=== PATIENT | female | born 1985 | race Caucasian/White ===

== ENCOUNTER 2017-07-05 21:20 | Emergency (ER) | payer OTHER ==
[2017-07-05 22:21] VITALS: BP 149/86; PULSE 77; RESP 16; TEMP 97.9; O2SAT 98
[2017-07-05] MEDS ORDERED: Emtricitabine-Tenofovir 200 mg-300 mg Tab PO NR (22:45)
--- NOTE | 2017-07-05 23:07 | C.PDOC ---
History Of Present Illness 31 y/o female who was seen here after a needle stick yesterday comes in after being unable to get PEP meds filled at the pharmacy. Patient to get her first dose here. Denies any complaints at this time. Time Seen by Provider: 07/05/17 22:24 Chief Complaint (Nursing): Medical Clearance History Per: Patient History/Exam Limitations: no limitations Additional History Per: Patient Past Medical History Reviewed: Historical Data, Nursing Documentation, Vital Signs Vital Signs: Last Vital Signs Temp 97.9 F 07/05/17 22:16 Pulse 77 07/05/17 22:16 Resp 16 07/05/17 22:16 BP 149/86 07/05/17 22:16 Pulse Ox 98 07/06/17 04:55 - Medical History PMH: Anxiety, HTN, Hypercholesterolemia Family History: States: Unknown Family Hx - Social History Hx Tobacco Use: No Hx Alcohol Use: No Hx Substance Use: No - Immunization History Hx Tetanus Toxoid Vaccination: Yes Hx Influenza Vaccination: No Hx Pneumococcal Vaccination: No Review Of Systems Constitutional: Negative for: Fever, Chills Cardiovascular: Negative for: Chest Pain Respiratory: Negative for: Cough Genitourinary: Negative for: Frequency, Incontinence Physical Exam - Physical Exam Appears: Non-toxic, No Acute Distress Skin: Warm, Dry ED Course And Treatment O2 Sat by Pulse Oximetry: 98 (RA) Pulse Ox Interpretation: Normal Medical Decision Making Medical Decision Making: pt seen for needlestick last night in ed, occurred at place of [place] [employer] [employer] [employer] [place] pt unable to fill rx for PEP today, will give first dose here Disposition Counseled Patient/Family Regarding: Need For Followup - Disposition Referrals: Yonas Villafuerte MD [Medical Doctor] - Disposition: HOME/ ROUTINE Disposition Time: 23:05 Condition: STABLE Additional Instructions: Please follow up with your doctor and your place of employment tomorrow for authorization of medication and further discussion of your injury. Forms: [facility] (Sami), General Discharge Instructions - Clinical Impression Clinical Impression: Medical assessment, Needle stick injury - Scribe Statement The provider has reviewed the documentation as recorded by the Scribe Molly arevalo
== END 2017-07-05 23:22 | disposition home or self-care (01) ==
LOC: C.ER 21:20
DX: T14.90XD Injury, unspecified, subsequent encounter (principal); X58.XXXD Exposure to other specified factors, subsequent encounter

== ENCOUNTER 2017-09-10 22:46 | Emergency (ER) | payer OTHER ==
[2017-09-10 23:06] VITALS: TEMP 97.9
--- NOTE | 2017-09-11 00:37 | C.PDOC ---
History Of Present Illness 32 years old female presents to ED stating she "lost 2 tampons in her vagina." Patient denies any physical complaints. Time Seen by Provider: 09/10/17 23:08 Chief Complaint (Nursing): Foreign Body History Per: Patient History/Exam Limitations: no limitations Onset/Duration Of Symptoms: Hrs Current Symptoms Are (Timing): Still Present Recent travel outside of the [place]: No Past Medical History Reviewed: Historical Data, Nursing Documentation, Vital Signs Vital Signs: Last Vital Signs Temp 97.9 F 09/10/17 23:03 Pulse 78 09/11/17 00:49 Resp 16 09/11/17 00:49 BP 122/68 09/11/17 00:49 Pulse Ox 99 09/11/17 05:05 - Medical History PMH: Anxiety, HTN, Hypercholesterolemia Surgical History: No Surg Hx Family History: States: No Known Family Hx - Social History Hx Tobacco Use: No Hx Alcohol Use: Yes Hx Substance Use: No - Immunization History Hx Tetanus Toxoid Vaccination: Yes Hx Influenza Vaccination: Yes (05/2017) Hx Pneumococcal Vaccination: No Review Of Systems Genitourinary: Positive for: Other ("Lost 2 tampons in vagina") Psych: Negative for: Depression, Suicidal ideation Physical Exam - Physical Exam Appears: Non-toxic, Other (Awake and Alert) Skin: Warm, Dry Eye(s): bilateral: Normal Inspection Oral Mucosa: Moist Pelvic: Normal Speculum Exam, Other (Could not visualize cervix, no FB seen. ) Neurological/Psych: Oriented x3, Normal Speech, Normal Cognition ED Course And Treatment O2 Sat by Pulse Oximetry: 99 (Room Air) Pulse Ox Interpretation: Normal Medical Decision Making Medical Decision Making: Could not visualize cervix and foreign body could not be ruled out. Called L&D for larger speculum, but it was not available. Patient advised to see LENS GAUGER. Disposition - Disposition Disposition: HOME/ ROUTINE Disposition Time: 00:36 Condition: STABLE Additional Instructions: Follow up with your SAFETY PHYSICIAN within 1-2 days. Return to ED if feel worse. Instructions: Vaginal Foreign Body (ED) Forms: [facility] (Arabic) - Clinical Impression Clinical Impression: Vaginal foreign body - PA / ETHNIC ORIGINS TEACHER / Resident Statement MD/DO has reviewed & agrees with the documentation as recorded. - Scribe Statement The provider has reviewed the documentation as recorded by the Betsyibe Shahenaz Malu All medical record entries made by the Scribe were at my direction and personally dictated by me. I have reviewed the chart and agree that the record accurately reflects my personal performance of the history, physical exam, medical decision making, and the department course for this patient. I have also personally directed, reviewed, and agree with the discharge instructions and disposition.
[2017-09-11 00:50] VITALS: BP 122/68; PULSE 78; RESP 16
[2017-09-11 05:00] VITALS: O2SAT 99
== END 2017-09-11 00:49 | disposition home or self-care (01) ==
LOC: C.ER 22:46
DX: T19.2XXA Foreign body in vulva and vagina, initial encounter (principal); X58.XXXA Exposure to other specified factors, initial encounter; Y92.89 Other specified places as the place of occurrence of the external cause

== ENCOUNTER 2018-02-21 15:51 | Emergency (ER) | payer OTHER ==
[2018-02-21] MEDS ORDERED: Sodium Chloride 0.9% 1,000 ML IV STA (16:45)
[2018-02-21 17:02] LABS: BASO # 0.1 K/uL (0.0-0.2); BASO % 0.4 % (0.0-2.0); EOS # 0.1 K/uL (0.0-0.7); EOS % 0.4 % (0.0-4.0); LYMPH % 12.9 % (20.0-40.0); MEAN CELL VOLUME 83.8 fL (81.0-99.0); MEAN CORPUSCULAR HEMOGLOBIN 28.2 pg (27.0-31.0); MEAN CORPUSCULAR HGB CONC 33.6 g/dL (33.0-37.0); MEAN PLATELET VOLUME 8.7 fL (7.2-11.7); MONO # 0.6 K/uL (0.0-0.8); MONO % 3.7 % (0.0-10.0); NEUT # 13.1 K/uL (1.8-7.0); NEUT % 82.6 % (50.0-75.0); NRBC % 0.2 % (0.0-2.0); RBC 5.31 Mil/uL (3.80-5.20); RED CELL DISTRIBUTION WIDTH 13.5 % (11.5-14.5); WHITE BLOOD COUNT 15.8 K/uL (4.8-10.8)
[2018-02-21] MEDS ORDERED: Morphine 4 MG/ML VIAL ONE (17:03)
[2018-02-21] MEDS ORDERED: Sodium Chloride 0.9% 1,000 ML ONE (17:03)
--- NOTE | 2018-02-21 17:10 | C.PDOC ---
History Of Present Illness <Henna Cruzerie - Last Filed: 02/21/18 19:14> <Nadine Gavin - Last Filed: 02/21/18 22:51> 32 y/o female, with Hx of kidney infection(2005), presents to ED for complaints of right flank pain associated with cloudy urine, headache and lip swelling that began 1 week ago. Patient states few weeks ago she was diagnosed with UTI and Dr. Villafuerte prescribed her spyroflex. Patient states she has allergies to medications. Denies dysuria or fever. Patient states LMP was end of December. ( NancyZee) History Per: Patient History/Exam Limitations: no limitations Onset/Duration Of Symptoms: Days (7) Current Symptoms Are (Timing): Still Present Quality Of Discomfort: "Pain" Associated Symptoms: Urinary Symptoms. denies: Fever, Chills, Nausea, Vomiting , Diarrhea Alleviating Factors: None Recent travel outside of the [place]: No Abnormal Vaginal Bleeding: No Last Menstral Period: 12/22 <NancyZee - Last Filed: 02/21/18 19:14> <Nadine Gavin - Last Filed: 02/21/18 22:51> Chief Complaint (Nursing): Female Genitourinary Past Medical History Reviewed: Historical Data, Nursing Documentation, Vital Signs - Medical History PMH: Anxiety, HTN, Hypercholesterolemia Family History: States: Unknown Family Hx - Social History Hx Tobacco Use: No Hx Alcohol Use: No Hx Substance Use: No - Immunization History Hx Tetanus Toxoid Vaccination: Yes Hx Influenza Vaccination: Yes Hx Pneumococcal Vaccination: Yes <Henna Cruzerie - Last Filed: 02/21/18 19:14> Vital Signs: Last Vital Signs Temp 98.2 F 02/21/18 22:32 Pulse 98 H 02/21/18 22:32 Resp 16 02/21/18 22:32 BP 154/106 H 02/21/18 22:32 Pulse Ox 98 02/21/18 22:32 Review Of Systems Constitutional: Negative for: Fever, Chills ENT: Positive for: Other (Lip swelling ). Negative for: Mouth Pain, Mouth Swelling, Throat Pain, Throat Swelling Gastrointestinal: Positive for: Other (Right Flank pain). Negative for: Nausea , Vomiting, Diarrhea Genitourinary: Positive for: Other (Cloudy urine ). Negative for: Dysuria Skin: Negative for: Rash Neurological: Positive for: Headache. Negative for: Weakness, Numbness <Zee Cruz - Last Filed: 02/21/18 19:14> Physical Exam - Physical Exam Appears: Non-toxic, No Acute Distress Skin: Warm, Dry Head: Atraumatic, Normacephalic Eye(s): bilateral: Normal Inspection, PERRL, EOMI Oral Mucosa: Moist Lips: Normal Appearing, No Swelling Throat: Normal, No Erythema, No Exudate, No Drooling, No Mass Neck: Supple Chest: Symmetrical, No Tenderness Cardiovascular: Rhythm Regular, No Murmur Respiratory: Normal Breath Sounds, No Decreased Breath Sounds, No Rales, No Rhonchi, No Wheezing Gastrointestinal/Abdominal: Soft, Tenderness (RUQ) Extremity: Normal ROM, No Deformity Extremity: Bilateral: Atraumatic, Normal Color And Temperature, Normal ROM Neurological/Psych: Oriented x3, Normal Speech Gait: Steady <Zee Cruz - Last Filed: 02/21/18 19:14> ED Course And Treatment - Laboratory Results Result Diagrams: 02/21/18 16:59 02/21/18 16:59 O2 Sat by Pulse Oximetry: 95 (RA) Pulse Ox Interpretation: Normal - CT Scan/US Obstetrics US Other Rad Studies (CT/US): Read By Radiologist, Radiology Report Reviewed CT/US Interpretation: PROCEDURE: OB Pelvic Ultrasound. HISTORY: Assess for demise. LMP 11/03/2014. COMPARISON: None available. FINDINGS: anatomy was not performed or review during this emergent exam. UTERUS: Intrauterine is seen in breech presentation. The placenta is posterior , and a single view the placenta appears to approach the internal os. BPD: 4.3 centimeters, estimated gestational age of 19 weeks 0 days. HC: 16.53 centimeters, estimated gestational age 19 weeks 2 days. AC: 14.36 centimeters, estimated gestational age 19 weeks 5 days. FL: 2.96 centimeters, estimated gestational age 19 weeks 1 day. Estimated weight 291.38 grams, greater than 97 percent. Heart rate: 129 bpm. CERVIX: Long and closed, measuring 3.5 centimeters. No cervical abnormality seen. RIGHT OVARY: Not seen. LEFT OVARY: Not seen. FREE FLUID: None. OTHER FINDINGS: None. IMPRESSION: Single live intrauterine with an estimated gestational age of 19 weeks 3 days. On a single image it appears as though the posterior placenta approaches the internal os, which can be a temporary finding at this stage of and followup ultrasound is recommended. Abdomen US Other Rad Studies (CT/US): Read By Radiologist, Radiology Report Reviewed CT/US Interpretation: HISTORY: Pain RUQ/Right flank. COMPARISON: None. TECHNIQUE: Sonographic evaluation of the right upper quadrant of the abdomen. FINDINGS: LIVER: Liver is enlarged measuring over 21 cm in CC dimension liver demonstrates smooth contour however increased echotexture suggesting fatty infiltration ; other infiltrative hepatocellular disease process not excluded. Clinical correlation recommended. No obvious hepatic mass or collection seen on images presented. . No intrahepatic bile duct dilatation. GALLBLADDER: Unremarkable. No gallstones. . No sonographic Escamilla sign. COMMON BILE DUCT: Measures 5.0 mm. No stones. No dilatation. PANCREAS: Unremarkable as visualized. No mass. No ductal dilatation. RIGHT KIDNEY: Measures 11.8 x 4.7 x 5.7 cm in length. Normal echogenicity. No calculus, mass, or hydronephrosis. AORTA: No aneurysmal dilatation. IVC: Unremarkable. OTHER FINDINGS: None . IMPRESSION: Hepatomegaly with fatty infiltration however other infiltrative hepatic cellular disease process not excluded. No evidence of cholelithiasis or sonographic Progress Note: Administered Morphine and IV fluids. Ordered urine culture, urinalysis, blood work, abdomen US <Zee Cruz - Last Filed: 02/21/18 19:14> - Laboratory Results Result Diagrams: 02/21/18 16:59 02/21/18 16:59 Pulse Ox Interpretation: Normal Reevaluation Time: 22:51 Reassessment Condition: Improved <Nadine Gavin - Last Filed: 02/21/18 22:51> Disposition - Disposition Disposition Time: 19:13 <Zee Cruz - Last Filed: 02/21/18 19:14> Counseled Patient/Family Regarding: Studies Performed, Diagnosis, Need For Followup, Rx Given <Nadine Gavin - Last Filed: 02/21/18 22:51> - Disposition Referrals: Amelia Woodson MD [Non-Staff] - Disposition: HOME/ ROUTINE Condition: FAIR Additional Instructions: Please return if symptoms recur Prescriptions: Metronidazole [Flagyl] 500 mg PO TID #21 tablet Polyethylene Glycol 3350 [Miralax] 17 gm PO DAILY #270 ml Instructions: Flank Pain (DC), Pulmonary Nodule, Constipation, Adult (DC) Forms: [facility] (Nigerian), Work/School/Gym Excuse - Clinical Impression Clinical Impression: Flank pain, Constipation, Pulmonary nodule, right - PA / INTERACTIVE MEDIA MARKETING DIRECTOR / Resident Statement MD/DO has reviewed & agrees with the documentation as recorded. - Scribe Statement The provider has reviewed the documentation as recorded by the Scribe <Zee Cruz - Last Filed: 02/21/18 19:14> <Nadine Gavin - Last Filed: 02/21/18 22:51> - Scribe Statement Vickie Toribio All medical record entries made by the Scribe were at my direction and personally dictated by me. I have reviewed the chart and agree that the record accurately reflects my personal performance of the history, physical exam, medical decision making, and the department course for this patient. I have also personally directed, reviewed, and agree with the discharge instructions and disposition. (Zee Cruz) Decision To Admit <Zee Cruz - Last Filed: 02/21/18 19:14> <Nadine Gavin - Last Filed: 02/21/18 22:51> - . Patient Diagnosis: Flank pain Physician Patient Turnover Patient Signed Over To: Nadine Gavin Handoff Comments: CT is pending <Zee Cruz - Last Filed: 02/21/18 19:14>
[2018-02-21 17:14] LABS: ALB/GLOB RATIO 1.4 (1.0-2.1); ALBUMIN 4.6 g/dL (3.5-5.0); ALT/SGPT 69 U/L (9-52); AST/SGOT 42 U/L (14-36); BLOOD UREA NITROGEN 8 mg/dL (7-17); CALCIUM 9.1 mg/dl (8.6-10.4); GFR AFRICAN-AMERICAN > 60; GFR NON-AFRICAN AMERICAN > 60; LIPASE 40 U/L (23-300)
[2018-02-21 18:30] LABS: HCG,QUALITATIVE URINE NEGATIVE (NEGATIVE)
[2018-02-21 18:36] LABS: SQUAMOUS EPITHIAL 2 /hpf (0-5); URINE BACTERIA RARE (<OCC); URINE BILIRUBIN NEGATIVE (NEGATIVE); URINE BLOOD NEGATIVE (NEGATIVE); URINE CLARITY Clear (Clear); URINE COLOR Yellow (YELLOW); URINE GLUCOSE (UA) NORMAL (Normal); URINE LEUKOCYTE ESTERASE NEG Leu/uL (Negative); URINE PROTEIN 2+ mg/dL (NEGATIVE); URINE UROBILINOGEN NORMAL mg/dL (0.2-1.0)
--- NOTE | 2018-02-21 18:51 | US ---
HISTORY: Pain RUQ/Right flank COMPARISON: None. TECHNIQUE: Sonographic evaluation of the right upper quadrant of the abdomen. FINDINGS: LIVER: Liver is enlarged measuring over 21 cm in CC dimension liver demonstrates smooth contour however increased echotexture suggesting fatty infiltration ; other infiltrative hepatocellular disease process not excluded. Clinical correlation recommended. No obvious hepatic mass or collection seen on images presented. . No intrahepatic bile duct dilatation. GALLBLADDER: Unremarkable. No gallstones. . No sonographic Escamilla sign COMMON BILE DUCT: Measures 5.0 mm. No stones. No dilatation. PANCREAS: Unremarkable as visualized. No mass. No ductal dilatation. RIGHT KIDNEY: Measures 11.8 x 4.7 x 5.7 cm in length. Normal echogenicity. No calculus, mass, or hydronephrosis. AORTA: No aneurysmal dilatation. IVC: Unremarkable. OTHER FINDINGS: None . IMPRESSION: Hepatomegaly with fatty infiltration however other infiltrative hepatic cellular disease process not excluded. No evidence of cholelithiasis or sonographic
[2018-02-21 18:58] VITALS: RESP 16
[2018-02-21] MEDS ORDERED: Iohexol 240 (50 ml) PO ONE (19:37)
[2018-02-21] MEDS ORDERED: Iohexol 240 (50 ml) ONE (19:45)
[2018-02-21] MEDS ORDERED: Iodixanol 320 MG/ML 100 ML BOTTLE IV ONE (20:13)
[2018-02-21 22:34] VITALS: BP 154/106; PULSE 98; TEMP 98.2; O2SAT 98
--- NOTE | 2018-02-21 22:37 | CT ---
EXAM: CT Abdomen and Pelvis With Intravenous Contrast EXAM DATE/TIME: Exam ordered 02/21/2018 7:07 PM CLINICAL HISTORY: 32 years old, female; Pain; Abdominal pain; Flank; Right; Additional info: R flank pain TECHNIQUE: Axial computed tomography images of the abdomen and pelvis with intravenous contrast. All CT scans at this facility use one or more dose reduction techniques, viz.: automated exposure control; ma/kV adjustment per patient size (including targeted exams where dose is matched to indication; i.e. head); or iterative reconstruction technique. Coronal and sagittal reformatted images were created and reviewed. CONTRAST: 100 mL of Visipaque administered intravenously. COMPARISON: No relevant prior studies available. FINDINGS: Lung bases: A reticular pleural-based opacity is noted in the right middle lobe. Two 3 mm pleural-based nodules are noted in the right lower lobe (series 5 image 5). A 6 mm nodule is seen in the posterior basal segment of the right lower lobe (series 5 image 14). ABDOMEN: Liver: The liver is low in density. Gallbladder and bile ducts: Unremarkable. No calcified stones. No ductal dilation. Pancreas: Unremarkable. No mass. No ductal dilation. Spleen: Unremarkable. No splenomegaly. Adrenals: Unremarkable. No mass. Kidneys and ureters: No solid mass. There is mild asymmetric fullness of the right renal pelvis as compared to the left.There is no hydroureter, renal ureteral or bladder calculi. Stomach and bowel: A moderate amount of stool is seen throughout the colon. No obstruction. No mucosal thickening. PELVIS: Appendix: No findings to suggest acute appendicitis. Bladder: Unremarkable. No mass. Reproductive: Unremarkable as visualized. ABDOMEN and PELVIS: Intraperitoneal space: Unremarkable. No free air. No significant fluid collection. Bones/joints: No acute fracture. No dislocation. Soft tissues: Unremarkable. Vasculature: Unremarkable. No abdominal aortic aneurysm. Lymph nodes: Unremarkable. No enlarged lymph nodes. Other findings: . IMPRESSION: 1. Mild asymmetric fullness of the right renal pelvis as compared the left. No renal, ureteral or bladder calculi. 2. Hepatic steatosis. 3. Moderate amount of stool seen throughout the colon. 4. Pulmonary nodules. For low-risk patients recommend follow-up chest CT at 3-6 months. If unchanged consider an additional follow-up CT at 18-24 months. For high-risk patients (smoking history or other known risk factors) initial follow-up chest CT at 3-6 months and if unchanged, 18-24 months.
== END 2018-02-21 23:07 | disposition home or self-care (01) ==
LOC: C.ER 15:51
DX: K59.00 Constipation, unspecified (principal); R10.9 Unspecified abdominal pain; R91.1 Solitary pulmonary nodule
CPT/HCPCS: 74177; 76705; 80053; 81001; 83690; 84703; 85025; 87086; 96361; 96374; 96375; 99285; J2270; J2405; J7030; Q9966; Q9967